=== PATIENT | male | born 1980 | race Caucasian/White ===

== ENCOUNTER 2020-04-04 15:47 | Outpatient (CLI) | payer OTHER | END 2020-04-04 23:59 | disposition home or self-care (01) | LOC: CVU 15:47 → RAD 23:59 | PROVIDERS: ATTEND Internal Medicine Cardiovascular Disease | DX: R07.9 Chest pain, unspecified (principal); I10 Essential (primary) hypertension | CPT/HCPCS: 71046; 93306; 93356 ==